=== PATIENT | female | born 1980 | race Caucasian/White ===

== ENCOUNTER 2017-05-20 13:21 | Observation (INO) | payer SELFPAY ==
[~2017-05-20] VITALS: Ht 157.5 cm; Wt 102.3 kg
[2017-05-20] MEDS ORDERED: ACETAMINOPHEN 325 MG TABLET ONE (14:05)
[2017-05-20 14:17] LABS: HEMATOCRIT 36.6 % (34.6-47.8); HEMOGLOBIN 12.3 g/dL (11.7-16.4); WHITE BLOOD COUNT 12.1 x10^3/uL (3.4-10)
[2017-05-20 14:29] LABS: ASPARTATE AMINO TRANSFERASE 19 U/L (15-37); BLOOD UREA NITROGEN 10 mg/dL (7-18)
[2017-05-20] MEDS ORDERED: ACETAMINOPHEN 325 MG TABLET PO PRN (14:30)
== END 2017-05-20 15:55 | disposition home or self-care (01) ==
LOC: LDIP 13:21
PROVIDERS: ADMIT Obstetrics & Gynecology Maternal & Fetal Medicine; ATTEND Obstetrics & Gynecology Maternal & Fetal Medicine
DX: O36.8190 Decreased fetal movements, unspecified trimester, not applicable or unspecified (principal); Z3A.00 Weeks of gestation of pregnancy not specified
CPT/HCPCS: 36415; 59025; 80053; 81001; 82248; 82570; 84156; 84550; 85025; G0378; 99211; G0463

== ENCOUNTER 2017-05-21 16:14 | Inpatient (IN) | payer SELFPAY ==
[~2017-05-21] VITALS: Ht 157.5 cm; Wt 102.2 kg
[2017-05-21] MEDS ORDERED: D5%-LACTATED RINGERS 1,000 ML IV SCH (22:24)
[2017-05-21] MEDS ORDERED: OXYTOCIN 30U/ 0.9% NaCL 500ML 500 ML IV ONE (22:24)
[2017-05-21] MEDS ORDERED: AMPICILLIN 2 GM in SODIUM CHLORIDE 0.9% 100 ML IVPB STA (22:24)
[2017-05-21] MEDS ORDERED: FENTANYL PF 100 MCG/2ML IV PRN (22:30)
[2017-05-21] MEDS ORDERED: MISOPROSTOL 25 MCG TABLET VG PRN (22:30)
[2017-05-21] MEDS ORDERED: ONDANSETRON 2MG/ML, 2ML IVPush PRN (22:30)
[2017-05-21] MEDS ORDERED: SODIUM CITRATE/CITRIC ACID 30 ML UDC PO PRN (22:30)
[2017-05-21] MEDS ORDERED: METOCLOPRAMIDE 5 MG/ML, 2ML IVPush PRN (22:30)
[2017-05-21] MEDS ORDERED: FENTANYL PF 100 MCG/2ML IVPush PRN (22:30)
[2017-05-21] MEDS: LACTATED RINGERS 1,000 ML IV SCH (22:35)
[2017-05-21 22:45] VITALS: BP 118/73
[2017-05-21] MEDS ORDERED: NEWBORN KIT ONE (22:53)
[2017-05-21] MEDS ORDERED: LIDOCAINE 1%, 20ML ONE (22:54)
[2017-05-21] MEDS ORDERED: MISOPROSTOL 25 MCG TABLET ONE (22:54)
[2017-05-21] MEDS ORDERED: MISOPROSTOL 200 MCG TABLET ONE (22:55)
[2017-05-21] MEDS ORDERED: OXYTOCIN 30U/ 0.9% NaCL 500ML 500 ML ONE (22:55)
[2017-05-21 22:59] LABS: HEMATOCRIT 33.4 % (34.6-47.8); HEMOGLOBIN 11.4 g/dL (11.7-16.4); WHITE BLOOD COUNT 10.3 x10^3/uL (3.4-10)
[2017-05-21] MEDS ORDERED: ACETAMINOPHEN 325 MG TABLET PO PRN (23:30)
[2017-05-21] MEDS ORDERED: ACETAMINOPHEN 325 MG TABLET ONE (23:30)
[2017-05-22] MEDS: AMPICILLIN 1 GM in SODIUM CHLORIDE 0.9% 50 ML IVPB SCH ×3 (02:40→10:24)
[2017-05-22] MEDS ORDERED: FENTANYL PF 100 MCG/2ML ONE (03:34)
[2017-05-22] MEDS ORDERED: IBUPROFEN 600 MG TABLET ONE (05:01)
[2017-05-22] MEDS: OXYcodone/APAP 5/325MG TABLET PO PRN ×3 (05:02→09:45)
[2017-05-22] MEDS ORDERED: OXYcodone/APAP 5/325MG TABLET ONE (05:02)
[2017-05-22] MEDS: OXYTOCIN 30U/ 0.9% NaCL 500ML 500 ML IV SCH ×2 (05:03→15:03)
[2017-05-22] MEDS: IBUPROFEN 600 MG TABLET PO PRN ×3 (05:05→22:48)
[2017-05-22] MEDS: LACTATED RINGERS 1,000 ML IV SCH (05:11)
[2017-05-22] MEDS ORDERED: RHOGAM FROM BLOOD BANK 1 NOTE EA IM/IV ONE (05:30)
[2017-05-22] MEDS ORDERED: DIPH,PERTUSS(ACELL),TET VAC/PF NC IM-VACC PRN (05:30)
[2017-05-22] MEDS ORDERED: CALCIUM CARBONATE 500 MG TAB.CHEW PO PRN (05:30)
[2017-05-22] MEDS ORDERED: MAGNESIUM HYDROXIDE 8%, 30ML UDC PO PRN (05:30)
[2017-05-22] MEDS ORDERED: MEASLES,MUMPS&RUBELLA VACC/PF 0.5 ML SQ PRN (05:30)
[2017-05-22] MEDS ORDERED: MISOPROSTOL 200 MCG TABLET PR PRN (05:30)
[2017-05-22] MEDS ORDERED: ONDANSETRON 2MG/ML, 2ML IV PRN (05:30)
[2017-05-22 06:00] VITALS: BP 126/63
[2017-05-22 07:11] VITALS: BP 129/76
[2017-05-22] MEDS: DOCUSATE 100 MG CAPSULE PO PRN ×2 (09:45→22:48)
[2017-05-22] MEDS: PRENATAL VIT/IRON/FA 1 EACH TABLET PO SCH (09:45)
[2017-05-22 12:04] VITALS: BP 126/77
[2017-05-22 12:19] LABS: HEMATOCRIT 32.2 % (34.6-47.8); HEMOGLOBIN 10.9 g/dL (11.7-16.4); WHITE BLOOD COUNT 13.1 x10^3/uL (3.4-10)
[2017-05-22] MEDS: OXYcodone IR 5MG TABLET PO PRN ×3 (14:28→22:51)
[2017-05-22 16:00] VITALS: BP 121/74
[2017-05-22 19:45] VITALS: BP 110/74
[2017-05-23] MEDS: OXYTOCIN 30U/ 0.9% NaCL 500ML 500 ML IV SCH ×2 (01:03→11:03)
[2017-05-23] MEDS: OXYcodone IR 5MG TABLET PO PRN ×3 (02:44→12:26)
[2017-05-23 07:15] VITALS: BP 113/73
[2017-05-23] MEDS: DOCUSATE 100 MG CAPSULE PO PRN (07:19)
[2017-05-23] MEDS: IBUPROFEN 600 MG TABLET PO PRN (07:19)
[2017-05-23] MEDS: PRENATAL VIT/IRON/FA 1 EACH TABLET PO SCH (07:19)
[2017-05-23] MEDS ORDERED: FLU VACC QS2017-18 (36MOS+) UP/PF 0.5 ML IM-VACC ONE (11:30)
[2017-05-23] MEDS ORDERED: OXYC-302 PO (12:39)
== END 2017-05-23 13:48 | disposition home or self-care (01) | DRG 775 ==
LOC: EDIP 22:15 → LDIP 22:42 → 2NW 05-22 06:02
PROVIDERS: ADMIT Obstetrics & Gynecology Maternal & Fetal Medicine; ATTEND Obstetrics & Gynecology Maternal & Fetal Medicine
PROC: 0HQ9XZZ Repair Perineum Skin, External Approach (ICD-10-PCS; principal; 2017-05-22)
PROC: 10E0XZZ Delivery of Products of Conception, External Approach (ICD-10-PCS; 2017-05-22)
DX: O99.824 Streptococcus B carrier state complicating childbirth (principal); E78.00 Pure hypercholesterolemia, unspecified; O69.81X0 Labor and delivery complicated by cord around neck, without compression, not applicable or unspecified; Z37.0 Single live birth; O99.284 Endocrine, nutritional and metabolic diseases complicating childbirth; Z80.0 Family history of malignant neoplasm of digestive organs; Z82.49 Family history of ischemic heart disease and other diseases of the circulatory system; Z83.3 Family history of diabetes mellitus; O70.0 First degree perineal laceration during delivery
CPT/HCPCS: 36415; 82803; 85025; 86850; 86900; 90686; J0290; J2590; J7120